=== PATIENT | male | born 1975 | race Hispanic/Latino ===

== ENCOUNTER 2021-06-25 09:42 | Emergency (ER) | payer OTHER, SELFPAY ==
[2021-06-25] MEDS ORDERED: Bupivacaine 0.25% 10 ML VIAL ONE (10:36)
[2021-06-25] MEDS ORDERED: Boostrix 0.5 ML (Tdap) VIAL ONE (11:22)
[2021-06-25] MEDS ORDERED: Bacitracin 1 PK ONE (12:05)
== END 2021-06-25 11:27 | disposition home or self-care (01) ==
LOC: ERS 09:42
DX: S62.630B Displaced fracture of distal phalanx of right index finger, initial encounter for open fracture (principal); S61.210A Laceration without foreign body of right index finger without damage to nail, initial encounter; E11.9 Type 2 diabetes mellitus without complications; I10 Essential (primary) hypertension; Z23 Encounter for immunization; W22.8XXA Striking against or struck by other objects, initial encounter; Y92.89 Other specified places as the place of occurrence of the external cause; Y99.0 Civilian activity done for income or pay
CPT/HCPCS: 12001; 90471; 90715; S0020